=== PATIENT | female | born 1935 | race Caucasian/White ===

== ENCOUNTER → 2016-12-26 | Outpatient (CLI) | payer MEDICARE ==
[~2016-12-26] MED LIST: ALPRAZOLAM0.5 MG PO; B COMPLEX1 EACH PO; CALCIUM + D 6001 TA1 PO; CALCIUM 500 +1 EAC2 PO; CALCIUM1 TAB.CHEW PO; COUMADIN5 MG PO; DIOVAN HCT 160/1 TAB PO; FERROUS GL325 ( 36 ) PO; LOVENOX SUBQ; METOPROLOL TAR25 MG PO; NORCO1 TAB 10/3 PO; PROTONIX PO; TRAMADOL HCL50 M2 PO; TYLENOL ARTHRITIS PO; TYLENOL325 M1 PO; ULTRAM PO; VALSARTAN-HCTZ1 EAC1 PO; VITAMIN B12-FO1 EACH PO; VITAMIN C100 M1 PO; VOLTAREN75 MG PO; WAL-PROFEN200 M2 PO; XANAX0.5 MG PO; XARELTO15 MG PO; XARELTO20 MG PO
--- NOTE | ~2016-12-26 | CR170 ---
[facility] A Service of [facility] RADIOLOGY TEXT RESULTS PATIENT: YOLANDA RUCKER LOCATION: [facility] : 34 UNIT #: [id number] AGE: [address]: Mendoza Jimenez MD SEX: F ORDER DR: [id number] [facility] [address] [place], [place] [address] [id number] O MR#: [id number] Acc #: [id number] NAME: YOLANDA RUCKER : 1935 SEX: F STUDY DATE/TIME: 12/26/2016 15:29 UNIT: [facility] ROOM: STUDY DESCRIPTION: CR Knee 2 Views Rt Attending Physician: Mendoza Jimenez M.D. Ordering Physician: Mendoza Jimenez M.D. Primary Care Physician: Manny Sams M.D. MEDICAL IMAGING REPORT This report is preliminary unless electronic signature is present EXAM Right knee HISTORY Pain, weakness and swelling. Knee surgery pending. Preoperative evaluation. TECHNIQUE 2 views of the knee were obtained. 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 There is a large accompanying joint effusion and moderately severe patellofemoral joint arthrosis is noted. Degenerative changes of the knee have progressed since 2014. No acute bony abnormalities are seen. IMPRESSION Advanced osteoarthritis especially in the medial compartment. Progression of degenerative change with more medial compartment collapse since the previous examination of 03/22/2015. Dictated by... Pillo Dsouza M.D. THIS IS AN ELECTRONICALLY VERIFIED REPORT Pillo Dsouza M.D. at 12/27/2016 3:48 PM STACIE/mary ann TD: 12/27/2016 08:21 JOB #: [id number] [facility] A Service of [facility] RADIOLOGY TEXT RESULTS PATIENT: YOLANDA RUCKER LOCATION: [facility] : 34 UNIT #: [id number] AGE: [address]: Mendoza Jimenez MD SEX: F ORDER DR: MEDICAL IMAGING REPORT Page 1 of 1 COPY
--- NOTE | ~2016-12-26 | CR63 ---
[facility] A Service of [facility] RADIOLOGY TEXT RESULTS PATIENT: YOLANDA RUCKER LOCATION: [facility] : 34 UNIT #: [id number] AGE: [address]: Mendoza Jimenez MD SEX: F ORDER DR: [id number] [facility] [address]. [place], [place] [address] [id number] O MR#: [id number] Acc #: [id number] NAME: YOLANDA RUCKER : 1935 SEX: F STUDY DATE/TIME: 12/26/2016 15:29 UNIT: [facility] ROOM: STUDY DESCRIPTION: CR Chest 2 View Attending Physician: Mendoza Jimenez M.D. Ordering Physician: Mendoza Jimenez M.D. Primary Care Physician: Manny Sams M.D. MEDICAL IMAGING REPORT This report is preliminary unless electronic signature is present EXAM PA and lateral chest HISTORY Preop right knee surgery. Weakness, swelling for 2 months. FINDINGS A PA and lateral view of the chest were obtained and compared to 09/13/2015. There is dextroscoliosis in the thoracic spine. Lungs are clear. The heart size is normal. IMPRESSION No active disease. Dictated by... Evert Jim M.D. THIS IS AN ELECTRONICALLY VERIFIED REPORT Evert Jim M.D. at 12/27/2016 5:54 AM VEE/yue TD: 12/27/2016 02:45 JOB #: [id number] MEDICAL IMAGING REPORT Page 1 of 1 COPY
--- NOTE | ~2016-12-26 | EKG ---
PATIENT: YOLANDA RUCKER UNIT #: [id number] Ventricular Rate: 71 BPM Atrial Rate: 71 BPM P-R Interval: 138 ms QRS Duration: 82 ms Q-T Interval: 392 ms QTC Calculation(Bezet): 425 ms P [place]: 51 degrees Calculated R [place]: 10 degrees Calculated T [place]: 34 degrees Diagnosis Line: Normal sinus rhythm Diagnosis Line: Inferior infarct , age undetermined Diagnosis Line: Abnormal ECG Diagnosis Line: When compared with ECG of 13-SEP-2015 10:15, Diagnosis Line: No significant change was found Diagnosis Line: Confirmed by TAMMY MATHIS MD ([id number]) on 12/27/2016 Diagnosis Line: 5:44:55 AM INTERPRETING MD: DEL ESPINAL
[2016-12-26 14:00] LABS: URINE APPEARANCE CLEAR; URINE BILIRUBIN NEG (NEG); URINE BLOOD NEG (NEG); URINE COLOR YELLOW; URINE GLUCOSE NEG (NEG); URINE KETONE NEG (NEG); URINE LEUKOCYTE ESTERASE 1+ (NEG); URINE NITRATE NEG (NEG); URINE PH 5.5 (5-8); URINE PROTEIN NEG (NEG); URINE SPECIFIC GRAVITY 1.017 (1.003-1.035); URINE UROBILINOGEN 0.2 MG/DL (NEG)
[2016-12-26 14:01] LABS: HEMATOCRIT 36.4 % (35.0-45.0); HEMOGLOBIN 12.4 gm/dL (12.0-16.0); MEAN CELL VOLUME 91.1 FL (83-96); MEAN CORPUSCULAR HEMOGLOBIN 31.1 PG (28-34); MEAN CORPUSCULAR HGB CONC 34.1 g/dL (30-36); MEAN PLATELET VOLUME 7.2 FL (6.5-11.5); RED BLOOD COUNT 3.99 X10e (3.90-5.30); RED CELL DISTRIBUTION WIDTH 13.9 % (11.0-15.5); WHITE BLOOD COUNT 6.7 X10e3 (4.0-10.5)
[2016-12-26 14:03] LABS: U HYALINE CASTS AUWI 0-2 /[LPF]; URBCS1 AUWI 0-2 /[HPF] (0-2); URINE BACTERIA AUWI NEG (NEGATIVE); URINE SQUAMOUS EPITHELIAL CELL NONE SEEN /[HPF]
[2016-12-26 14:09] LABS: CULTURE INDICATED? NO
[2016-12-26 14:11] LABS: URINE SOURCE CLEAN CATCH
[2016-12-26 14:33] LABS: BUN/CREATININE RATIO 26.36; CALCIUM SERUM 9.4 mg/dL (8.4-10.2); CREATININE SERUM 1.1 mg/dL (0.6-1.4); GLOM FILT RATE Estimated 46.7 mL/min (>60); POTASSIUM 4.2 mmol/L (3.5-5.1)
== END | disposition home or self-care (01) ==
LOC: CAMB 13:27
PROVIDERS: Specialist
DX: Z01.818 Encounter for other preprocedural examination (principal); M17.11 Unilateral primary osteoarthritis, right knee; Z88.0 Allergy status to penicillin; Z88.8 Allergy status to other drugs, medicaments and biological substances
CPT/HCPCS: 36415; 71020; 73560; 80048; 81003; 85027; 87070; 93005

== ENCOUNTER 2017-01-06 05:21 | Inpatient (IN) | payer MEDICARE ==
--- NOTE | ~2017-01-06 | OR ---
Unit #: [id number] #: [id number] Patient: YOLANDA MCKEE [id number] [address] [address] [id number] I MR#: [id number] NAME: YOLANDA MCKEE ROOM: [facility] Date of Procedure: 01/06/2017 Admission Date: 01/06/2017 Surgeon: Mendoza Jimenez M.D. : 1935 Attending Physician: Mendoza Jimenez M.D. Primary Care Physician: Manny Sams M.D. OPERATIVE REPORT PREOPERATIVE DIAGNOSIS Right knee osteoarthritis, end stage. POSTOPERATIVE DIAGNOSIS Right knee osteoarthritis, end stage. PROCEDURE PERFORMED Right total knee arthroplasty with [email or web address] computerized navigation. [employer]HW[employer]FFIC CONTROL TECHNICIAN Chris Dunbar, certified residential medication aide. ANESTHESIA General anesthesia. COMPLICATIONS None. COUNTS Sponge and needle counts were correct at the conclusion of the case. IMPLANTS UTILIZED Epifanio femoral component a size 6 right narrow cruciate retaining. Tibial component is size E, right Persona cemented articular surface size is 13 Medial Congruent, vitamin E polyethylene, and patella size 32 mm with vitamin E patella. INDICATIONS FOR PROCEDURE Ms. Mckee is an 81-year-old female who failed conservative treatment for right knee osteoarthritis. Risks and benefits of right total knee arthroplasty were discussed in detail. Risks of infection, deep venous thrombosis, pulmonary embolism, need for revision surgery, persistent pain, . Questions were answered to her satisfaction. Informed consent was obtained and placed in chart. DESCRIPTION OF PROCEDURE After the patient was identified in the preoperative holding area, the operative site was marked in front of the patient, brought to the operative room for surgery and placed supine on the operating room table. General endotracheal anesthesia was placed uneventfully. A nonsterile tourniquet was placed in the upper right thigh and it was then prepped and Unit #: [id number] #: [id number] Patient: YOLANDA MCKEE draped in usual sterile fashion. Esmarch was used to extend the exsanguinate the limb. The tourniquet was inflated to 250 mmHg. Then, making the midline incision on top of the patella to 1 cm medial to the tibial tubercle was made with a #10 blade scalpel. A medial parapatellar arthrotomy was completed with another #10 blade scalpel. Medial joint lines elevated subperiosteally with electrocautery and Poole. The inferior fat pad was dissected with Stewart scissors and a rongeur. Patella was everted 90 degrees. A towel clip and the oscillating saw was used to complete the osteotomy cut. Size 32 patella was selected and the peg holes were drilled for the size place and the patella was everted outside the femur. Esther's line was drawn on the distal femur for alignment purposes. Then, using the iASSIST, pin was then placed in the distal femur and the iASSIST cutting block was then attached in place. Then, the femoral cut was aligned with neutral varus valgus alignment and 3 degrees of flexion of the implant. It was then pinned in place. A +1 mm distal femoral cut and the oscillating saw was used to complete the osteotomy cut. Following this, AP sizing guide was utilized. Size 6 femur was measured, 3 degrees for a size 6 femur was drilled and was impacted and pinned and then the oscillating saw was used to complete the osteotomy cut. Following this, the iASSIST cutting block was attached and was pinned in place. However, on the alignment of the cutting block, it appeared there was going to be taken off too much; although, the alignment did appear to be acceptable with varus valgus and slope, so decision was made to use standard extramedullary alignment guide, was then placed, again measured 2 mm. The medial joint space was pinned in place and the oscillating saw was used to complete the osteotomy cut. Of note, she had extensive medial tibial bone loss with increased slope present. Then, the laminar oral and maxillofacial surgery resident was placed laterally followed by medially meniscus and posterior osteophytes. The tibial base plate was then placed. We dropped the tourniquet pinned in place and externally rotated the medial third tibial tubercle. Then, trial components were placed with a size 6 femur right, size E tibia right, and a size 14 polyethylene and 32 patella. The knee was flexed and pinned and found to be stable in all planes. The lug holes were drilled for the femur and the tibia was then drilled and broached. Bony surfaces were then cleaned with jet lavage saline system and thoroughly dried, covered with Palacos cement with gentamicin. The backside of the implants were also covered with cement and then they were impacted in place. The trial polyethylene was placed. Knee was placed in extension and cement was allowed to fully harden. The wound was copiously irrigated with 3 L of Betadine laced normal saline. The trial polyethylene was removed. The final polyethylene was snapped into place. The arthrotomy was closed with #1 Vicryl with the knee flexed 90 degrees, 2-0 Vicryl to close the dermis, and 3-0 Monocryl followed by Dermabond skin glue to close the skin. Sterile dressing applied. She was awakened from anesthesia and returned to recovery room in stable condition. No intraoperative complications. Dictated by... Chidi Mitchell/kirstie TD: 01/07/2017 00:43 JOB #: [id number] Unit #: [id number] #: [id number] Patient: YOLANDA MCKEE OPERATIVE REPORT Page 1 of 1 X Mendoza Jimenez MD X PROCEDURE OPERATIVE NOTE
--- NOTE | ~2017-01-06 | CR170 ---
[facility] A Service of [facility] RADIOLOGY TEXT RESULTS PATIENT: YOLANDA RUCKER LOCATION: [place] [address] : 34 UNIT #: [id number] AGE: [address]: Mendoza Jimenez MD SEX: F ORDER DR: [id number] [place] [id number] [facility] [place], [place] [address] [id number] O MR#: [id number] Acc #: [id number] NAME: YOLANDA RUCKER : 1935 SEX: F STUDY DATE/TIME: 01/06/2017 10:06 UNIT: [facility] ROOM: STUDY DESCRIPTION: CR Knee 2 Views Rt Attending Physician: Mendoza Jimenez M.D. Ordering Physician: Mendoza Jimenez M.D. Primary Care Physician: Manny Sams M.D. MEDICAL IMAGING REPORT This report is preliminary unless electronic signature is present EXAM Right knee, 2 views INDICATIONS Postop right total knee arthroplasty initial exam. COMPARISON 12/26/2016 FINDINGS Postop right total knee arthroplasty. Hardware intact. Alignment anatomic. Expected postoperative soft tissue swelling and air. IMPRESSION Postop right total knee arthroplasty Dictated by... Gerber Zuniga M.D. THIS IS AN ELECTRONICALLY VERIFIED REPORT Gerber Zuniga M.D. at 01/06/2017 4:05 PM Naseem TD: 01/06/2017 11:34 JOB #: [id number] MEDICAL IMAGING REPORT Page 1 of 1 COPY
--- NOTE | ~2017-01-06 | DS ---
Unit #: [id number] #: [id number] Patient: YOLANDA RUCKER [id number] [address] [place], [place] [address] [id number] I MR#: [id number] NAME: YOLANDA RUCKER ROOM: 449 Age: 81 Sex: F Admission Date: 01/06/2017 : 1935 Discharge Date: 01/08/2017 Attending Physician: Mendoza Jimenez M.D. Primary Care Physician: Manny Sams M.D. DISCHARGE SUMMARY ADMITTING DIAGNOSIS Osteoarthritis of the right knee. DISCHARGE DIAGNOSES Osteoarthritis of the right knee. PROCEDURES Right total knee. HOSPITAL COURSE The patient was admitted on 01/06/[address] Jimenez and taken to the operating room where she underwent a right total knee. She has done well. She is up with therapy. She is on Lovenox until her INR is greater than 1.8 and she is on Coumadin 5 mg a day. We will check a ProTime this morning. Her pulse is 110 this morning, so we will give her a bolus of 250 mL normal saline and then if the patient's pulse comes down to the low 95 will discharge her to rehab. Her hemoglobin today is 8.2. She is full weight bearing. She will followup with Dr. Jimenez in two to three weeks. Dictated by... Chidi Escobar/stephan TD: 01/08/2017 13:05 JOB #: [id number] DISCHARGE SUMMARY Page 1 of 1 X Lester Pinto MD DISCHARGE SUMMARY
[~2017-01-06 05:21] MED LIST changes: -B COMPLEX1 EACH PO; -CALCIUM 500 +1 EAC2 PO; -METOPROLOL TAR25 MG PO; -TYLENOL ARTHRITIS PO; -WAL-PROFEN200 M2 PO
[2017-01-06] MEDS ORDERED: XARELTO20 MG PO (14:17)
[2017-01-06] MEDS ORDERED: VALSARTAN-HCTZ1 EAC1 PO (14:17)
[2017-01-06] MEDS ORDERED: B COMPLEX1 EACH PO (14:18)
[2017-01-06] MEDS ORDERED: CALCIUM 500 +1 EAC2 PO (14:18)
[2017-01-06] MEDS ORDERED: WAL-PROFEN200 M2 PO (14:18)
[2017-01-06] MEDS ORDERED: TYLENOL ARTHRITIS PO (14:19)
[2017-01-06 17:36] LABS: PROTHROMBIN TIME (PATIENT) 10.7 SECONDS (9.6-11.5)
[2017-01-07 04:29] LABS: HEMATOCRIT 26.5 % (35.0-45.0); HEMOGLOBIN 8.8 gm/dL (12.0-16.0)
[2017-01-07 06:12] LABS: BUN/CREATININE RATIO 21.81; CALCIUM SERUM 8.2 mg/dL (8.4-10.2); CREATININE SERUM 1.1 mg/dL (0.6-1.4); GLOM FILT RATE Estimated 46.7 mL/min (>60); POTASSIUM 4.7 mmol/L (3.5-5.1)
[2017-01-08 03:34] LABS: HEMATOCRIT 24.7 % (35.0-45.0); HEMOGLOBIN 8.2 gm/dL (12.0-16.0)
[2017-01-08 04:01] LABS: BUN/CREATININE RATIO 20.9; CALCIUM SERUM 8.4 mg/dL (8.4-10.2); CREATININE SERUM 1.1 mg/dL (0.6-1.4); GLOM FILT RATE Estimated 46.7 mL/min (>60); POTASSIUM 3.9 mmol/L (3.5-5.1)
[2017-01-08 09:36] LABS: INR 1.4; PROTHROMBIN TIME (PATIENT) 14.7 SECONDS (9.6-11.5)
[2017-01-22] MEDS ORDERED: METOPROLOL TAR25 MG PO (15:20)
== END 2017-01-08 15:05 | DRG 470 ==
LOC: CSUR 05:21 → CPACUOF 09:55 → C4B 14:31
PROVIDERS: Orthopaedic Surgery; Specialist
PROC: 0SRC0J9 Replacement of Right Knee Joint with Synthetic Substitute, Cemented, Open Approach (ICD-10-PCS; principal; 2017-01-06 07:30)
DX: M17.11 Unilateral primary osteoarthritis, right knee (principal); J44.9 Chronic obstructive pulmonary disease, unspecified; K21.9 Gastro-esophageal reflux disease without esophagitis; F41.9 Anxiety disorder, unspecified; M41.9 Scoliosis, unspecified; I10 Essential (primary) hypertension; I25.10 Atherosclerotic heart disease of native coronary artery without angina pectoris; Z88.0 Allergy status to penicillin; Z88.8 Allergy status to other drugs, medicaments and biological substances; Z91.040 Latex allergy status
CPT/HCPCS: 73560; 80048; 85014; 85018; 85610; 97110; 97116; 97162; 97166; 97530; 97535; C1776; G8978-GP; G8979-GP; G8987-GO; G8988-GO; J0131; J0171; J0735; J1170; J1650; J1885; J2250; J2270; J2405; J2550; J2795; J3010; J3370